=== PATIENT | male | born 1940 | race Caucasian/White ===

== ENCOUNTER → 2025-03-09 08:37 | Outpatient (BNVA) | payer OTHER, SELFPAY | PROVIDERS: Visit Provider Nurse Practitioner Family | DX: D22.4 Melanocytic nevi of scalp and neck (principal); L82.1 Other seborrheic keratosis; L81.4 Other melanin hyperpigmentation; L57.8 Other skin changes due to chronic exposure to nonionizing radiation; D22.5 Melanocytic nevi of trunk; D48.5 Neoplasm of uncertain behavior of skin | CPT/HCPCS: 11102; 99203 ==